=== PATIENT | male | born 1955 | race African-American/Black ===

== ENCOUNTER → 2019-10-08 | Outpatient (CLI) | payer OTHER ==
--- NOTE | 2019-10-08 14:03 | RAD ---
EXAM: Left knee, 3 views. HISTORY: Pain. COMPARISON: None. FINDINGS: 3 views of the left knee are obtained. There is medial compartment joint space narrowing and trochlea bilateral spurring. There is enthesopathy along the superior patella. There is no significant joint effusion. There is no fracture, dislocation or subluxation. IMPRESSION: Mild medial compartment predominant tricompartmental osteoarthritis of the left knee. Electronically signed by: Tricia Blandon MD (10/08/2019 2:01 PM) [place] [id number]
== END | disposition home or self-care (01) ==
LOC: RAD 11:44
PROVIDERS: ATTEND Family Medicine
DX: M17.12 Unilateral primary osteoarthritis, left knee (principal)
CPT/HCPCS: 73562